=== PATIENT | female | born 2000 | race Caucasian/White ===

== ENCOUNTER 2022-10-16 09:59 | Emergency (ER) | payer MEDICAID ==
[~2022-10-16] VITALS: Ht 157.5 cm; Wt 70.0 kg
[~2022-10-16 09:59] MED LIST: LORA-269 PO
[2022-10-16 10:22] LABS: BASOPHILS # (AUTO) 0.1 X10'3 (0-0.2); BASOPHILS % (AUTO) 0.5 % (0-1); EOSINOPHILS % (AUTO) 0.1 % (0-6); HEMOGLOBIN 13.5 g/dl (12.0-16.0); LYMPHOCYTES # (AUTO) 1.3 X10'3 (1.1-4.8); LYMPHOCYTES % (AUTO) 9.2 % (21-51); MEAN CORPUSCULAR HEMOGLOBIN 30.2 PG (27.0-31.0); MEAN CORPUSCULAR VOLUME 91.3 FL (78-98); MEAN PLATELET VOLUME 9.2 FL (7.4-10.4); MONOCYTES # (AUTO) 1.4 X10'3 (0-0.9); MONOCYTES % (AUTO) 10.4 % (2-12); NEUTROPHILS # (AUTO) 10.9 X10'3 (1.8-7.7); NEUTROPHILS % (AUTO) 79.8 % (42-75); PLATELET COUNT 208 X10'3 (140-440); RED BLOOD COUNT 4.49 X10'6 (4.20-5.60); RED CELL DISTRIBUTION WIDTH 13.9 % (11.5-14.5); WHITE BLOOD COUNT 13.7 X10'3 (4.5-11.0)
[2022-10-16 10:32] LABS: ALANINE AMINOTRANSFERASE 27 U/L (12-78); ALBUMIN 4.1 G/DL (3.4-5.0); ALBUMIN/GLOBULIN RATIO 1.1 (1.1-1.5); ALKALINE PHOSPHATASE 86 IU/L (46-116); ANION GAP 4 (8-16); ASPARTATE AMINO TRANSFERASE 14 U/L (10-37); BILIRUBIN,TOTAL 0.6 MG/DL (0.1-1.0); BLOOD UREA NITROGEN 8 MG/DL (7-18); BUN/CREATININE RATIO 9.2 (10.0-20.0); CALCIUM 9.2 MG/DL (8.5-10.1); CHLORIDE 104 MMOL/L (99-107); CREATININE 0.87 MG/DL (0.40-0.90); GLUCOSE 112 MG/DL (70-104); POTASSIUM 3.7 MMOL/L (3.5-5.1); SODIUM 136 MMOL/L (135-145); TOTAL PROTEIN 7.9 G/DL (6.4-8.2); eGFR 81 ML/MIN
[2022-10-16 10:41] LABS: MAGNESIUM 1.9 MG/DL (1.5-2.4)
--- NOTE | 2022-10-16 10:53 | NUR ---
BS 143.
[2022-10-16] MEDS ORDERED: normal saline 1000ml 1,000 ML IV ONE (11:25)
[2022-10-16] MEDS ORDERED: LORazepam 2 mg/ml vial IV ONE (11:25)
[2022-10-16 11:48] LABS: D-DIMER 0.32 MG/L FEU (0-0.50)
[2022-10-16 13:50] LABS: CLARITY,URINE CLOUDY (Clear); COLOR,URINE YELLOW (Yellow); GLUCOSE, URINE NEGATIVE (Neg); KETONES,URINE NEGATIVE (Neg); LEUKOCYTE ESTERASE ,URINE SMALL (Neg); NITRITES, URINE POSITIVE (Neg); OCCULT BLOOD,URINE SMALL (Neg); PROTEIN,URINE NEGATIVE (Neg); UROBILINOGEN,URINE 0.2 E.U/dL (0.2-1.0)
[2022-10-16 13:52] LABS: UA COLLECTION TYPE VOIDED
[2022-10-16 13:57] LABS: WBC,URINE 30-50 /HPF (0-4)
[2022-10-16 13:58] LABS: BACTERIA,URINE 4+ /HPF (Neg)
[2022-10-16 13:59] LABS: SQUAMOUS EPITHELIAL CELL,UR MODERATE /LPF (FEW); WBC CLUMPS,URINE FEW /HPF (NEGATIVE)
[2022-10-16] MEDS ORDERED: CefTRIAXone/D5W-Rocephin 1gm 50 ML IV ONE (14:25)
[2022-10-16] MEDS ORDERED: ONDA4TAB12 PO (14:28)
[2022-10-16] MEDS ORDERED: CEPH-585 PO (14:28)
[2022-10-16 14:44] LABS: URINE AMPHETAMINE SCREEN NEGATIVE (Neg); URINE BARBITUATE SCREEN NEGATIVE (Neg); URINE BENZODIAZEPINES SCREEN NEGATIVE (Neg); URINE CANNABINOID SCREEN POSITIVE (Neg); URINE COCAINE SCREEN NEGATIVE (Neg); URINE METHADONE SCREEN NEGATIVE (Neg); URINE OPIATE SCREEN NEGATIVE (Neg); URINE PHENCYCLIDINE SCREEN NEGATIVE (Neg)
[2022-10-16 15:34] VITALS: BP 123/73
== END 2022-10-16 15:36 | disposition home or self-care (01) ==
LOC: ER 09:59
DX: N12 Tubulo-interstitial nephritis, not specified as acute or chronic (principal); E86.0 Dehydration; F41.9 Anxiety disorder, unspecified; Z79.899 Other long term (current) drug therapy
CPT/HCPCS: 36415; 71045; 80053; 80305; 81001; 83735; 83880; 84484; 85025; 85379; 87077; 87088; 87186; 93005; 96361; 96365; 96375; 99285; J0696; J2060; J7030

== ENCOUNTER 2024-04-20 09:00 | Emergency (ER) | payer MEDICAID ==
[~2024-04-20] VITALS: Ht 157.5 cm; Wt 75.6 kg
[~2024-04-20 09:00] MED LIST changes: +ONDA-243 PO
[2024-04-20 10:03] LABS: BASOPHILS # (AUTO) 0.1 X10'3 (0-0.2); BASOPHILS % (AUTO) 0.4 % (0-1); EOSINOPHILS % (AUTO) 0.2 % (0-6); HEMATOCRIT 41.3 % (35.0-45.0); HEMOGLOBIN 14.2 g/dl (12.0-16.0); LYMPHOCYTES # (AUTO) 1.3 X10'3 (1.1-4.8); LYMPHOCYTES % (AUTO) 7.2 % (21-51); MEAN CORPUSCULAR HEMOGLOBIN 31.5 PG (27.0-31.0); MEAN CORPUSCULAR HGB CONC 34.4 g/dL (33.0-36.5); MEAN CORPUSCULAR VOLUME 91.5 FL (78-98); MEAN PLATELET VOLUME 8.8 FL (7.4-10.4); MONOCYTES % (AUTO) 5.3 % (2-12); NEUTROPHILS # (AUTO) 15.9 X10'3 (1.8-7.7); NEUTROPHILS % (AUTO) 86.9 % (42-75); PLATELET COUNT 216 X10'3 (140-440); RED BLOOD COUNT 4.51 X10'6 (4.20-5.60); RED CELL DISTRIBUTION WIDTH 12.7 % (11.5-14.5); WHITE BLOOD COUNT 18.3 X10'3 (4.5-11.0)
[2024-04-20 10:16] LABS: ALBUMIN 4.1 G/DL (3.4-5.0); ANION GAP 8 (8-16); BLOOD UREA NITROGEN 11 MG/DL (7-18); BUN/CREATININE RATIO 15.1 (10.0-20.0); CALCIUM 9.3 MG/DL (8.5-10.1); CHLORIDE 105 MMOL/L (99-107); CREATININE 0.73 MG/DL (0.40-0.90); GLUCOSE 100 MG/DL (70-104); SODIUM 140 MMOL/L (135-145); eCRCL 94 ML/MIN; eGFR > 90 ML/MIN
[2024-04-20] MEDS ORDERED: iohexol 350MG/ML 100ml bottle IV ONE (10:28)
[2024-04-20 10:57] LABS: HCG SERUM QL NEGATIVE
[2024-04-20] MEDS: ondansetron/PF 4mg/2ml inj IV ONE (11:00)
[2024-04-20] MEDS: CefTRIAXone 2gm/D5W 50ml BAG 50 ML IV ONE (11:02)
[2024-04-20] MEDS: morphine 4 MG/ML inj SYRINge IV ONE ×2 (11:02→11:53)
[2024-04-20] MEDS: dexamethasone 4mg/ml inj IV SCH (11:02)
[2024-04-20] MEDS: normal saline 1000ml 1,000 ML IV ONE ×2 (11:02→12:37)
[2024-04-20 11:21] LABS: C-REACTIVE PROTEIN 7.25 MG/DL (0.0-0.5)
[2024-04-20] MEDS ORDERED: CLINDAMYCIN 600mg IN NS 50ML 50 ML IV ONE (11:30)
[2024-04-20] MEDS: clindamycin 600mg/D5W 50ml 50 ML IV ONE (11:53)
[2024-04-20] MEDS: LIDOcaine 2% Viscous 15ml cup MM PRN (12:35)
[2024-04-20] MEDS ORDERED: AMOX-117 PO (13:32)
[2024-04-20] MEDS ORDERED: HYDR-3964 PO (13:33)
[2024-04-20] MEDS ORDERED: DEC4T PO (13:34)
[2024-04-20] MEDS ORDERED: ONDA-245 PO (13:34)
[2024-04-20] MEDS: ketorolac trometh 15mg/ml vial 15 MG/ML ML IV ONE (13:48)
[2024-04-20 13:56] VITALS: BP 136/75; PULSE 98; TEMP 98.7; O2SAT 98
[2024-04-20 14:01] VITALS: RESP 18
== END 2024-04-20 15:13 | disposition home or self-care (01) ==
LOC: ER 09:00
DX: J36 Peritonsillar abscess (principal); F41.9 Anxiety disorder, unspecified; Z79.899 Other long term (current) drug therapy
CPT/HCPCS: 36415; 70491; 80048; 83605; 84145; 84703; 85025; 86140; 87040; 96361; 96365; 96375; 96376; 99291; J0696; J1100; J1885; J2270; J2405; J3490; J7030; Q9967; 99285